=== PATIENT | female | born 1945 | race Caucasian/White ===

== ENCOUNTER 2019-05-19 14:22 | Emergency (ER) | payer MEDICARE ==
[2019-05-19 14:30] VITALS: BP 167/82
--- NOTE | 2019-05-19 14:31 | ED Physician Documentation ---
PD HPI HEAD INJURY - Stated complaint Stated Complaint: GLF/L FACIAL INJ - History obtained from History obtained from: Patient - History of Present Illness Mechanism of head injury: Fell Where head injury occurred: Other (she is visiting from out of town and staying at friends house. She was drinking and states fell. Does not remember it well. Awoke this morning with abrasions to left face, lateral periorbital area, and some headache.) Timing - onset: Last night Location of injury: Left, Front (left lateral periorbital area) Quality of pain: Aching Associated symptoms: Amnesia (does not remember the fall last night). No: AMS Symptoms worsen with: Palpation Contributing factors: Intoxicated. No: Anticoagulated Similar symptoms before: Has not had sx before Review of Systems Constitutional: denies: Fever Eyes: denies: Loss of vision Nose: denies: Rhinorrhea / runny nose, Congestion Throat: denies: Sore throat Cardiac: denies: Chest pain / pressure Respiratory: denies: Cough GI: denies: Abdominal Pain, Nausea, Vomiting Skin: reports: Abrasion (s) Neurologic: reports: Headache, Head injury. denies: Generalized weakness, Focal weakness, Numbness, Altered mental status PD PAST MEDICAL HISTORY - Past Medical History Cardiovascular: None Respiratory: None Neuro: None Endocrine/Autoimmune: None - Allergies Allergies/Adverse Reactions: Allergies Allergy/AdvReac Type Severity Reaction Status Date / Time acetaminophen [From Tylenol] Allergy Hives Verified 05/19/19 14:31 atorvastatin [From Lipitor] Allergy Hives Verified 05/19/19 14:31 cephalexin [From Keflex] Allergy Unknown Verified 05/19/19 14:31 Penicillins Allergy Hives Verified 05/19/19 14:31 Sulfa (Sulfonamide Allergy Unknown Verified 05/19/19 14:31 Antibiotics) PD ED PE NORMAL - Vitals Vital signs reviewed: Yes - General General: Alert and oriented X 3, No acute distress, Well developed/nourished - HEENT HEENT: PERRL, EOMI, Other (left periorbital and forehead area with abrasions with some dust/dirt still in it. Not tender at nose. 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, No motor deficit, No sensory deficit, Normal speech Eye Opening: Spontaneous Motor: Obeys Commands Verbal: Oriented GCS Score: 15 Results - Vitals Vitals: Vital Signs - 24 hr 05/19/19 14:26 Temperature 36.5 C Heart Rate 104 H Respiratory 17 Rate Blood Pressure 167/82 H O2 Saturation 97 Oxygen O2 Source Room air - Rads (name of study) facial and head CT Radiology: Prelim report reviewed (no fractures, bleeding, nor acute findings (question of bilateral nasal fracture vs normal variant, but patient is not tender at nose).), See rad report PD MEDICAL DECISION MAKING - ED course Complexity details: reviewed results (head and facial CTs without obvious problems. Question of nasal fracture but patient is not tender at the nose. ), considered differential, d/w patient Departure - Departure Disposition: 01 Home, Self Care Clinical Impression: Accidental fall Qualifiers: Encounter type: initial encounter Qualified Code(s): W19.XXXA - Unspecified fall, initial encounter Facial abrasion Qualifiers: Encounter type: initial encounter Qualified Code(s): S00.81XA - Abrasion of other part of head, initial encounter Condition: Stable Record reviewed to determine appropriate education?: Yes Instructions: ED Abrasion Comments: Your head CT does not show any acute injury or signs of bleeding or bruising. Your facial CT does not show any fractures. Cleanse the abrasions couple of times a day with soap and water and apply ointment gently. Recheck if signs of infection develop. This should heal over a week or 2. Tylenol or ibuprofen or naproxen as needed for pains. Discharge Date/Time: 05/19/19 16:21
[2019-05-19] MEDS ORDERED: LIDOCAINE JELLY 2% 5 ML TUBE TOP STA (14:46)
[2019-05-19] MEDS ORDERED: TETANUS/DIPHTHERIA/PERTUSSIS 0.5 ML SYRINGE IM ONE (14:46)
[2019-05-19] MEDS ORDERED: IBUPROFEN 600 MG TABLET PO STA (14:47)
--- NOTE | 2019-05-19 15:43 | CT Report ---
Reason: fall and struck left face; poor memory of event Procedure Date: 05/19/2019 Accession Number: [id number] / [id number] Procedure: CT - HEAD WO CPT Code: FULL RESULT: EXAM: CT HEAD EXAM DATE: 05/19/2019 03:29 PM. CLINICAL HISTORY: 73-year-old female. Fall and struck left face; poor memory of event. COMPARISON: None. TECHNIQUE: Multiaxial CT images were obtained from the foramen magnum to the vertex. Reformats: Sagittal and coronal. IV contrast: None. In accordance with CT protocol optimization, one or more of the following dose reduction techniques were utilized for this exam: automated exposure control, adjustment of mA and/or KV based on patient size, or use of iterative reconstructive technique. FINDINGS: Parenchyma: No intraparenchymal hemorrhage. No evidence of mass, midline shift, or CT findings of infarction. Simpson-white differentiation is distinct. Chronic infarction left basal ganglia as evidenced by cystic encephalomalacia. 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 Extraaxial Spaces: Normal for age. No subdural or epidural collections identified. Ventricles: Normal in size and position. Sinuses and Orbits: Status post bilateral lens replacement surgery. Imaged paranasal sinuses, orbits, and mastoids show no significant abnormality. Bones: No evidence of fracture or calvarial defect. Other: Moderate atherosclerosis intracranial arteries. IMPRESSION: 1. No CT evidence of acute intracranial abnormality, specifically no CT evidence of acute infarct, intracranial hemorrhage, mass effect, midline shift, or hydrocephalus. 2. Chronic infarction left basal ganglia as evidenced by cystic encephalomalacia. 3. 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 [facility]
--- NOTE | 2019-05-19 15:45 | CT Report ---
Reason: fall and struck left face; poor memory of event Procedure Date: 05/19/2019 Accession Number: [id number] / [id number] Procedure: CT - MAXILLOFACIAL WO CPT Code: FULL RESULT: EXAM: CT MAXILLOFACIAL WITHOUT CONTRAST. EXAM DATE: 05/19/2019 03:29 PM. CLINICAL HISTORY: Fall and struck left face; poor memory of event. COMPARISONS: None. TECHNIQUE: Thin-section axial images were acquired of the face without contrast. Post-processing: Coronal and sagittal reformats. Other: None. In accordance with CT protocol optimization, one or more of the following dose reduction techniques were utilized for this exam: automated exposure control, adjustment of mA and/or KV based on patient size, or use of iterative reconstructive technique. FINDINGS: Soft Tissue: The infratemporal fossa and parapharyngeal spaces are unremarkable. Orbits: Symmetric and unremarkable. Bones: There is symmetric disruption of the bilateral nasal bones without significant displacement with mild soft tissue thickening overlying the left aspect of the nose, suspicious for nondisplaced nasal fracture. No other fractures are detected. Temporomandibular Joints: The temporomandibular joints are symmetric and normally located. Sinuses: There is mild mucoperiosteal thickening within the right maxillary sinus. Mild mucoperiosteal thickening is also seen within the ethmoid air cells predominantly on the right side. Sphenoid sinuses, left maxillary sinus and frontal sinuses are unremarkable. Other: Superficial soft tissue swelling is seen in the left periorbital region. IMPRESSION: Suspect minimally displaced/nondisplaced nasal fracture. Superficial left periorbital swelling. [facility]
== END 2019-05-19 16:21 | disposition home or self-care (01) ==
LOC: ED 14:22
DX: S00.81XA Abrasion of other part of head, initial encounter (principal); S00.212A Abrasion of left eyelid and periocular area, initial encounter; W18.30XA Fall on same level, unspecified, initial encounter; Y92.009 Unspecified place in unspecified non-institutional (private) residence as the place of occurrence of the external cause; Z23 Encounter for immunization
CPT/HCPCS: 70450; 70486; 90471; 90715; 99282; 99284; J3490

== ENCOUNTER 2019-10-09 20:09 | Outpatient (CLI) | payer MEDICARE | END 2019-10-09 23:59 | disposition EMS.NT | LOC: EMS 20:09 | PROVIDERS: ATTEND Surgery | DX: R55 Syncope and collapse (principal); R19.7 Diarrhea, unspecified ==